=== PATIENT | female | born 1945 | race Two or more races ===

== ENCOUNTER 2022-06-12 08:26 | Outpatient (CLI) | payer OTHER | END 2022-06-12 08:28 | disposition home or self-care (01) | LOC: LAB 08:26 | DX: J45.909 Unspecified asthma, uncomplicated (principal); R10.13 Epigastric pain; E55.9 Vitamin D deficiency, unspecified; D68.9 Coagulation defect, unspecified; R19.4 Change in bowel habit; E03.9 Hypothyroidism, unspecified; E78.49 Other hyperlipidemia; M81.8 Other osteoporosis without current pathological fracture; Z12.11 Encounter for screening for malignant neoplasm of colon; K92.1 Melena; E11.9 Type 2 diabetes mellitus without complications ==

== ENCOUNTER → 2022-06-18 15:12 | Outpatient (CLI) | payer OTHER | END | disposition home or self-care (01) | LOC: LAB 15:12 | DX: R10.13 Epigastric pain (principal); E55.9 Vitamin D deficiency, unspecified; D68.9 Coagulation defect, unspecified; R19.4 Change in bowel habit; E03.9 Hypothyroidism, unspecified; E78.49 Other hyperlipidemia; M81.8 Other osteoporosis without current pathological fracture; Z12.11 Encounter for screening for malignant neoplasm of colon; E11.9 Type 2 diabetes mellitus without complications ==

== ENCOUNTER 2022-10-29 11:52 | Outpatient (CLI) | payer OTHER | END 2022-10-29 11:53 | disposition home or self-care (01) | LOC: NUCLEAR 11:52 | DX: M81.0 Age-related osteoporosis without current pathological fracture (principal) ==

== ENCOUNTER → 2022-10-29 | Outpatient (CLI) | payer OTHER | END | disposition home or self-care (01) | LOC: SONOGRAMA 10:46 | DX: N18.31 Chronic kidney disease, stage 3a (principal) ==